=== PATIENT | female | born 1990 ===

== ENCOUNTER 2018-05-26 10:53 | Emergency (ER) | payer SELFPAY ==
[~2018-05-26] VITALS: Ht 160 cm; Wt 52.2 kg
[2018-05-26 10:54] VITALS: BP 140/70; Ht 160 cm; Wt 52.2 kg
== END 2018-05-26 12:13 | disposition left against medical advice (07) ==
LOC: ED 10:53
DX: Z53.21 Procedure and treatment not carried out due to patient leaving prior to being seen by health care provider (principal)